=== PATIENT | male | born 1985 | race Caucasian/White ===

== ENCOUNTER 2016-06-20 11:25 | Emergency (ER) | payer BC ==
[~2016-06-20] VITALS: Ht 177.8 cm; Wt 76.0 kg
[~2016-06-20 11:25] MED LIST: LEXAPRO10 MG PO
[2016-06-20 12:15] VITALS: BP 122/78
[2016-06-20 12:21] LABS: HEMATOCRIT 44.1 % (38.0-50.0); MCH 30.1 PG (29.0-34.0); MCHC 34.9 G/DL (30.0-36.0); MCV 86.1 FL (86-99); RBC DIS.WIDTH-CV 11.4 % (11.8-14.6); RBC DIS.WIDTH-SD 36.3 % (39-53); RED BLOOD COUNT 5.12 M/uL (4.00-5.50); WHITE BLOOD COUNT 6.4 K/uL (4.1-10.2)
[2016-06-20 12:29] LABS: CHLORIDE 107 mEq/L (99-109); POTASSIUM 4.1 mEq/L (3.7-5.4); SODIUM 141 mEq/L (136-147)
[2016-06-20 12:30] LABS: GLUCOSE 93 mg/dL (70-99)
[2016-06-20 12:32] LABS: ANION GAP 10 MEQ/L (2-14)
[2016-06-20 12:34] LABS: GFR ESTIMATE (CALCULATED) > 59 mL/min/
[2016-06-20 12:35] LABS: UREA NITROGEN (BUN) 11 mg/dL (9-23)
[2016-06-20 12:41] LABS: TROP-I INTERPRETATION NEGATIVE; TROPONIN-I < 0.01 ng/mL (0.0-0.30)
[2016-06-20 14:05] LABS: MEAN PLAT.VOLUME 10.3 uM^3 (9.0-12.4); PLATELET COUNT 185 K/uL (156-360)
== END 2016-06-20 13:44 | disposition home or self-care (01) ==
LOC: EME 11:25
DX: R07.89 Other chest pain (principal); F17.200 Nicotine dependence, unspecified, uncomplicated
CPT/HCPCS: 71020; 80048; 84484; 85027; 93005; 99281; 99285

== ENCOUNTER 2017-06-21 17:44 | Emergency (ER) | payer BC ==
[~2017-06-21] VITALS: Ht 177.8 cm; Wt 69.0 kg
[2017-06-21 18:27] LABS: HEMATOCRIT 43.3 % (38.0-50.0); HEMOGLOBIN 15.8 G/DL (12.5-16.6); MCH 30.9 PG (29.0-34.0); MCHC 36.5 G/DL (30.0-36.0); MCV 84.6 FL (86-99); RBC DIS.WIDTH-CV 11.2 % (11.8-14.6); RBC DIS.WIDTH-SD 34.5 % (39-53); RED BLOOD COUNT 5.12 M/uL (4.00-5.50); WHITE BLOOD COUNT 8.2 K/uL (4.1-10.2)
[2017-06-21 18:32] LABS: PLATELET COUNT 201 K/uL (156-360)
[2017-06-21 18:38] LABS: ALBUMIN 4.8 g/dL (3.2-4.8); CHLORIDE 107 mEq/L (99-109); POTASSIUM 3.6 mEq/L (3.7-5.4); SODIUM 142 mEq/L (136-147)
[2017-06-21 18:41] LABS: GLUCOSE 81 mg/dL (70-99); TOTAL PROTEIN 7.2 g/dL (6.4-8.3)
[2017-06-21 18:43] LABS: TOTAL BILIRUBIN 0.8 mg/dL (0.0-1.0)
[2017-06-21 18:44] LABS: ALKALINE PHOSPHATASE 57 IU/L (3-129); SERUM ETHYL ALCOHOL 37 mg/dL
[2017-06-21 18:45] LABS: CREATININE 1.1 mg/dL (0.6-1.3); GFR ESTIMATE (CALCULATED) > 59 mL/min/ (58.99-99999)
[2017-06-21 18:46] LABS: AST (GOT) 14 IU/L (2-34); UREA NITROGEN (BUN) 10 mg/dL (9-23)
[2017-06-21 18:47] LABS: ALT (GPT) 8 IU/L (3-49)
[2017-06-21 20:10] VITALS: BP 128/81
[2017-06-21 20:11] LABS: AMPHETAMINE NEGATIVE (500 ng/mL); BARBITURATES NEGATIVE (200 ng/mL); BENZODIAZEPINES NEGATIVE (150 ng/mL); BUPRENORPHINE NEGATIVE (10 ng/mL); COCAINE NEGATIVE (150 ng/mL); METHADONE NEGATIVE (200 ng/mL); METHAMPHETAMINE NEGATIVE (500 ng/mL); OPIATES (MORPHINE) NEGATIVE (100 ng/mL); OXYCODONE NEGATIVE (100 ng/mL); PHENCYCLIDINE NEGATIVE (25 ng/mL); PROPOXYPHENE NEGATIVE (300 ng/mL); THC CANNABINOIDS PRESUMPTIVE POSITIVE (50 ng/mL); TRICYCLIC ANTIDEPRESSANTS NEGATIVE (300 ng/mL)
== END 2017-06-21 20:10 | disposition home or self-care (01) ==
LOC: EME 17:44
PROVIDERS: Emergency Medicine
DX: F32.9 Major depressive disorder, single episode, unspecified (principal); F41.9 Anxiety disorder, unspecified; F43.10 Post-traumatic stress disorder, unspecified; Z87.891 Personal history of nicotine dependence; Z88.1 Allergy status to other antibiotic agents
CPT/HCPCS: 80053; 84999; 85027; 90837; 99281; 99285; G0480